=== PATIENT | male | born 1990 | race American Indian/Alaskan Native ===

== ENCOUNTER 2016-11-30 18:53 | Emergency (ER) | payer OTHER ==
[2016-11-30 21:47] LABS: Basophils % (Auto) 0.3 % (0.0-1.8); Eosinophils % (Auto) 0.4 % (0.0-4.3); Hematocrit 44.2 % (35.5-45.6); Hemoglobin 14.7 gm/dl (11.8-15.2); Mean Corpuscular HGB Conc 33 % (32-34); Mean Corpuscular Hemoglobin 29 pg (28-32); Mean Corpuscular Volume 88 fl (84-94); Platelet Count 130 K/mm3 (140-440); Red Blood Count 5.03 M/mm3 (3.65-5.03); Red Cell Distribution Width 13.8 % (13.2-15.2); White Blood Count 7.2 K/mm3 (4.5-11.0)
[2016-11-30 21:57] LABS: Anion Gap 19 mmol/L; BUN/Creatinine Ratio 10.66; Blood Urea Nitrogen 16 mg/dL (9-20); Calcium 8.9 mg/dL (8.4-10.2); Carbon Dioxide 23 mmol/L (22-30); Chloride 102.3 mmol/L (98-107); Glucose 94 mg/dL (75-100); Potassium 3.7 mmol/L (3.6-5.0); Sodium 141 mmol/L (137-145)
[2016-11-30 22:05] LABS: Bilirubin,Urine NEG (Negative); Blood,Urine LG (Negative); Ketones,Urine NEG (Negative); Leukocyte Esterase,Urine TR (Negative); Mucus,Urine FEW /HPF; Nitrite,Urine NEG (Negative); Urobilinogen,Urine < 2.0 mg/dL (<2.0)
[2016-11-30 22:08] LABS: RBC,Urine > 182.0 /HPF (0.0-6.0)
[2016-11-30 23:18] VITALS: BP 138/80
--- NOTE | 2016-12-04 19:47 | ED Elopement Review ---
ED Pt Elopement review - Results review Lab results: Laboratory Tests 11/30/16 11/30/16 11/30/16 21:22 21:22 Unknown WBC 7.2 RBC 5.03 Hgb 14.7 Hct 44.2 MCV 88 MCH 29 MCHC 33 RDW 13.8 Plt Count 130 L Lymph % (Auto) 9.8 L [place] % (Auto) 5.9 Eos % (Auto) 0.4 Baso % (Auto) 0.3 Lymph # 0.7 L [place] # 0.4 Eos # 0.0 Baso # 0.0 Seg Neutrophils % 83.6 H Seg Neutrophils # 6.0 Sodium 141 Potassium 3.7 Chloride 102.3 Carbon Dioxide 23 Anion Gap 19 BUN 16 Creatinine 1.5 Estimated GFR > 60 BUN/Creatinine Ratio 10.66 Glucose 94 Calcium 8.9 Urine Color [place] Urine Turbidity Cloudy Urine pH 6.0 Ur Specific [place] 1.021 Urine Protein 100 mg/dl Urine Glucose (UA) Neg Urine Ketones Neg Urine Blood Lg Urine Nitrite Neg Urine Bilirubin Neg Urine Urobilinogen < 2.0 Ur Leukocyte Esterase Tr Urine WBC (Auto) 14.0 H Urine RBC (Auto) > 182.0 Urine Mucus Few - Call Back decision Pt Call Back Decision: Pt to F/U with PMD (patient is to follow with the primary care provider here showed that he has large amounts of blood and is mildly tachycardic.)
== END 2016-12-01 02:10 | disposition left against medical advice (07) ==
LOC: ED 18:53
DX: R31.9 Hematuria, unspecified (principal); Z53.21 Procedure and treatment not carried out due to patient leaving prior to being seen by health care provider
CPT/HCPCS: 36415; 80048; 81001; 85025